=== PATIENT | female | born 1970 | race African-American/Black ===

== ENCOUNTER 2024-01-11 09:58 | Emergency (ER) | payer MEDICARE, OTHER ==
[~2024-01-11] VITALS: Ht 170.2 cm; Wt 128.0 kg
[2024-01-11 10:02] VITALS: O2SAT 98
[2024-01-11] MEDS ORDERED: ONDANSETRON HCL 4MG TABLET PO ONE (11:00)
[2024-01-11 11:12] LABS: BASOPHILS % 0.4 % (0.0-2.0); EOSINOPHILS % 1.4 % (0.0-5.0); HEMATOCRIT. 44.1 % (36.0-48.0); HEMOGLOBIN. 13.8 g/dL (12.0-16.0); LYMPHOCYTES % 26.4 % (20.0-50.0); MEAN CORPUSCULAR HEMOGLOBIN 25.1 pg (28.0-32.0); MEAN CORPUSCULAR HGB CONC 31.3 g/dL (31.0-37.0); MEAN CORPUSCULAR VOLUME 80.2 fL (81.0-99.0); MEAN PLATELET VOLUME 7.7 fl (7.4-10.4); MONOCYTES % 10.6 % (2.0-8.0); NEUTROPHILS % 61.2 % (40.0-76.0); PLATELET 251 x1000/uL (130-400); RED BLOOD CELL COUNT 5.49 mill/uL (4.2-5.4); RED CELL DISTRIBUTION WIDTH 15.7 % (11.6-14.6)
[2024-01-11 11:15] LABS: CARBON DIOXIDE 26 mEq/L (21-32); CHLORIDE 107 mEq/L (98-107); POTASSIUM 3.8 mEq/L (3.5-5.1); SODIUM 138 mEq/L (136-145)
[2024-01-11 11:16] LABS: CALCIUM 10.1 mg/dL (8.7-10.4)
[2024-01-11 11:20] LABS: CREATININE 0.9 mg/dL (0.6-1.0); GLUCOSE 106 mg/dL (70-105)
[2024-01-11 11:21] LABS: UREA NITROGEN BLOOD 11 mg/dL (9-23)
[2024-01-11 11:22] LABS: ALANINE AMINOTRANSFERASE 13 IU/L (10-49); ALBUMIN 4.5 g/dL (3.2-4.8); ASPARTATE AMINOTRANSFERASE 16 IU/L (<34)
[2024-01-11 11:23] LABS: PROTEIN TOTAL 8.5 g/dL (6.0-8.3)
[2024-01-11 12:15] LABS: TROPONIN I HIGH SENSITIVITY 9 ng/L (3.0-34)
[2024-01-11] MEDS: ONDANSETRON HCL 4MG TABLET PO NR (13:19)
[2024-01-11 13:20] VITALS: BP 142/82; PULSE 94; RESP 16; TEMP 36.78072; O2SAT 98
== END 2024-01-11 13:26 | disposition home or self-care (01) ==
LOC: ER 10:12
DX: A08.4 Viral intestinal infection, unspecified (principal); I11.0 Hypertensive heart disease with heart failure; I50.9 Heart failure, unspecified; Z88.5 Allergy status to narcotic agent
CPT/HCPCS: 99284; 71045; 80053; 83880; 83690; 85025; 84484; 36415; Q0162